=== PATIENT | male | born 1945 | race Caucasian/White ===

== ENCOUNTER → 2018-01-11 | Emergency (ER) | payer OTHER ==
[~2018-01-11] VITALS: Ht 193 cm; Wt 99.8 kg
[~2018-01-11] MED LIST: KEFLEX500 MG; PNEU16DI2; PYRIDIUM200 MG; SULFAMETHOXAZOL20 ML
== END | disposition left against medical advice (07) ==
LOC: ER 13:08
DX: N39.0 Urinary tract infection, site not specified (principal); B96.1 Klebsiella pneumoniae [K. pneumoniae] as the cause of diseases classified elsewhere